=== PATIENT | male | born 1995 | race African-American/Black ===

== ENCOUNTER 2022-02-07 12:43 | Emergency (ER) | payer OTHER, SELFPAY ==
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
[2022-02-07 12:59] VITALS: BP 158/94; PULSE 71; RESP 16; TEMP 36.7; O2SAT 100
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
[2022-02-07] MEDS: LIDOCAINE 5% PATCH 1 PATCH TRANSDERM (14:15)
[2022-02-07] MEDS: IBUPROFEN 600 MG TABLET PO (14:15)
== END 2022-02-07 14:50 | disposition home or self-care (01) ==
PROVIDERS: Emergency Provider Emergency Medicine
DX: S39.012A Strain of muscle, fascia and tendon of lower back, initial encounter (principal); V43.62XA Car passenger injured in collision with other type car in traffic accident, initial encounter
CPT/HCPCS: 72100; 99283; A9270

== ENCOUNTER 2022-04-18 21:03 | Emergency (ER) | payer OTHER, SELFPAY ==
[2022-04-18 21:12] VITALS: BP 151/82; PULSE 80; RESP 16; TEMP 37.2; O2SAT 100
[2022-04-18 21:38] LABS: Add Urine Microscopic? NO; Appearance Urine Clear (Clear); Bilirubin Urine Negative (Negative); Blood Urine Negative (Negative); Color Urine Yellow (Yellow); Glucose Urine UA Negative (Negative); Ketones Urine Negative (Negative); Leukocyte Esterase Ur Negative LEU/UL (Negative); Nitrate Urine Negative (Negative); Protein Urine Negative (Negative); Specific Grav Ur 1.015 (1.001-1.035); Urobilinogen Urine 0.2 mg/dL (<2.0); pH Urine 7.5 (5.0-9.0)
[2022-04-18 21:45] LABS: Mucus Urine Rare /lpf; RBC Urine 0-2 /hpf (0-2); WBC Urine 0-3 /hpf
--- NOTE | 2022-04-18 22:43 | ED.GENADULT ---
HPI - General Adult General Chief complaint: Urogenital-Male Stated complaint: Sti check Time Seen by Provider: 04/18/22 22:19 History of Present Illness HPI narrative: Mr. De La Cruz is a 26-year-old gentleman who presented emergency room with complaints of occasional dysuria. Patient states over the last week he has had dysuria off and on. Patient denies any fever or chills. Patient denies any flank pain. Patient denies any penile discharge. Patient states that he does have unprotected sex with 1 partner. Patient states that he is trying to be safe and he could have an STD. Patient denies ever having an STD in the past. Related Data Home Medications Medication Instructions Recorded Confirmed No Home Medications 02/07/22 02/07/22 Allergies Allergy/AdvReac Type Severity Reaction Status Date / Time No Known Allergies Allergy Verified 04/18/22 21:38 Review of Systems Review of Systems: A 12 point review of systems was completed patient all pertinent positive and negative per HPI the remainder are unremarkable. Exam Narrative: Constitutional: Patient is well-nourished in no acute distress. Patient is alert and oriented x3 HEENT: Moist mucous membranes. No scleral icterus. No lymphadenopathy. Neck: No carotid bruits noted no JVD noted Lungs: Lung sounds are clear to auscultation bilaterally. No accessory muscle use. No rhonchi, rales, or wheezes noted. Cardiovascular: Apical pulse is regular rate and rhythm. S1-S2 noted, no S3 or S4 noted. No gallops, murmurs, or rubs noted. Abdomen: Soft, round, and nontender. No palpable masses. Extremities: No edema. Nontender. Skin: No rashes or lesions. Warm and dry. Skin is intact. Neurological: No focal neurological deficits. Cranial nerves II-XII grossly intact. Psychiatric: Cooperative, appropriate mood, and affect Course Course Emergency Course: Discussed with patient that he will be treated for STDs at this time. Patient verbalized understanding. Also discussed with patient that he should be using protection when having sex with more than 1 partner. Patient verbalized understand this. Vital Signs Vital signs: Vital Signs Temperature 37.2 C 04/18/22 21:12 Pulse Rate 80 04/18/22 21:12 Respiratory Rate 16 04/18/22 21:12 Blood Pressure 151/82 H 04/18/22 21:12 Pulse Oximetry 100 04/18/22 21:12 Oxygen Delivery Room Air 04/18/22 21:12 Temperature 37.2 C 04/18/22 21:12 Pulse Rate 80 04/18/22 21:12 Respiratory Rate 16 04/18/22 21:12 Blood Pressure 151/82 H 04/18/22 21:12 Pulse Oximetry 100 04/18/22 21:12 Oxygen Delivery Room Air 04/18/22 21:12 Medical Decision Making Differential Diagnosis Differential Diagnosis: UTI, STD Vital Signs Vital Signs: Vital Signs Temperature 37.2 C 04/18/22 21:12 Pulse Rate 80 04/18/22 21:12 Respiratory Rate 16 04/18/22 21:12 Blood Pressure 151/82 H 04/18/22 21:12 Pulse Oximetry 100 04/18/22 21:12 Oxygen Delivery Room Air 04/18/22 21:12 Temperature 37.2 C 04/18/22 21:12 Pulse Rate 80 04/18/22 21:12 Respiratory Rate 16 04/18/22 21:12 Blood Pressure 151/82 H 04/18/22 21:12 Pulse Oximetry 100 04/18/22 21:12 Oxygen Delivery Room Air 04/18/22 21:12 Lab Data Labs: Lab Results 04/18/22 04/18/22 04/18/22 Range/Units 21:22 21:22 21:23 Urine Color (Yellow) Urine Appearance (Clear) Urine pH (5.0-9.0) Ur Specific [place] (1.001-1.035) Urine Protein (Negative) mg/dL Urine Glucose (UA) (Negative) mg/dL Urine Ketones (Negative) mg/dL Ur Blood (Man) (Negative) Urine Nitrate (Negative) Urine Bilirubin (Negative) Urine Urobilinogen (<2.0) mg/dL Leukocyte Esterase Rfl (Negative) GIGI/UL Urine RBC (0-2) /hpf Urine WBC /hpf Urine Mucus /lpf C.trachomatis RNA (TMA) Pending N.gonorrhoeae RNA (TMA) Pending Trichomonas Direct ID Cancelled
[2022-04-18] MEDS: metroNIDAZOLE 250 MG TABLET 2000 MG PO (23:03)
[2022-04-18] MEDS: AZITHROMYCIN 250 MG TABLET 2000 MG PO (23:05)
[2022-04-18] MEDS: cefTRIAXone 1 GM VIAL 0.5 GM IM (23:07)
[2022-04-18] MEDS: LIDOCAINE HCL 1% PF 30 ML VIAL INFILTRATE (23:07)
== END 2022-04-18 23:40 | disposition home or self-care (01) ==
PROVIDERS: Emergency Medicine; Emergency Provider Nurse Practitioner Adult Health
DX: R30.0 Dysuria (principal)
CPT/HCPCS: 81003; 87491; 87591; 87661; 96372; 99283; A9270; J0696

== ENCOUNTER 2022-04-20 23:35 | Emergency (ER) | payer OTHER, SELFPAY ==
[2022-04-20 23:38] VITALS: BP 164/104; PULSE 73; RESP 18; TEMP 36.8; O2SAT 100
[2022-04-20 23:59] LABS: Basophils Absolute Auto 0.1 K/mm3 (0.0-0.1); Eosinophils Absolute Auto 0.2 K/mm3 (0-0.3); Eosinophils Percent Auto 2.7 % (0-4.4); Hematocrit 44.1 % (42.0-52.0); Hemoglobin 14.5 g/dL (14.0-18.0); Immature Granulocyte Absolute 0.03 K/mm3 (0.00-0.031); Immature Granulocyte Percent A 0.4 % (0-0.5); Lymphocytes Absolute Auto 1.48 K/mm3 (0.9-3.2); Lymphocytes Percent Auto 20.3 % (18.3-44.2); Mean Corpuscular HGB Conc 32.9 g/dl (32-36); Mean Corpuscular Hemoglobin 28.6 pg (26-34); Mean Platelet Volume 8.7 fl (7.4-10.4); Monocytes Absolute Auto 0.6 K/mm3 (0.1-0.6); Monocytes Percent Auto 8.4 % (2.6-8.5); Neutrophils Absolute Auto 4.9 K/mm3 (1.3-6.7); Neutrophils Percent Auto 67.2 % (45.5-73.1); Platelet Count Result 293 k/mm3 (150-375); Red Blood Count 5.07 M/mm3 (4.6-6.20); Red Cell Distribution Width 12.9 % (11.5-14.5); White Blood Count 7.3 K/mm3 (4.5-10.0)
[2022-04-21 00:10] LABS: Alanine Aminotransferase 19 U/L (6-50); Albumin Level 5.3 g/dL (3.5-5.1); Alkaline Phosphatase 61 U/L (38-126); Anion Gap 9 mmol/L (8-16); Aspartate Amino Transferase 34 U/L (17-59); Bilirubin,Total 0.4 mg/dL (0.2-1.3); Blood Urea Nitrogen 11 mg/dL (9-20); Calcium 9.9 mg/dL (8.4-10.2); Carbon Dioxide 25 mmol/L (22-30); Chloride 101 mmol/L (98-107); Estimated CRCL calculation 85 ml/min; Estimated Glomerular Filt Rate > 60; Glucose 119 mg/dL (65-110); Lipase 105 U/L (23-300); Potassium 3.8 mmol/L (3.4-5.0); Sodium 135 mmol/L (137-145)
--- NOTE | 2022-04-21 00:15 | ED.ABDPAIN ---
HPI - Abdominal Pain General Chief Complaint: Abdominal Pain Stated Complaint: abdominal pain/diarrhea Time Seen by Provider: 04/20/22 23:41 Source: patient Mode of arrival: ambulatory Limitations: no limitations History of Present Illness HPI narrative: 26-year-old otherwise healthy here with complaints of abdominal cramping. Patient states that he was seen in the ER few days ago Flagyl. Patient states that he has taken 2 tablets so far and he has been cramping on and off. He presently denies any nausea, vomiting. He states that he had a formed stool this afternoon. No history of fever or chills. MD elicited complaint: abdominal pain Pertinent past history: none Onset (ago): day(s) (1) Pain Consistency: intermittent Location: RUQ Severity: mild Quality: cramping Radiation: none Migration to: no migration Exacerbating factors: nothing Relieving factors: nothing Related Data Home Medications Medication Instructions Recorded Confirmed No Home Medications 02/07/22 02/07/22 Allergies Allergy/AdvReac Type Severity Reaction Status Date / Time No Known Allergies Allergy Verified 04/18/22 21:38 Review of Systems Review of Systems: All systems reviewed & are unremarkable except as noted in HPI and below Constitutional: Constitutional: Reports no additional constitutional complaints Eyes: Eyes: Reports no additional eye complaints ENT: Reports system reviewed and no additional complaints, except as documented Cardiovascular: Cardiovascular: Reports no additional cardiovascular complaints Respiratory: Respiratory: Reports no additional respiratory complaints Gastrointestinal: Gastrointestinal: Reports as per HPI Musculoskeletal: Musculoskeletal: Reports no additional musculoskeletal complaints Neurologic: Reports system reviewed and no additional complaints, except as documented Exam Narrative: GENERAL: Well-appearing, well-nourished, and in no acute distress. HEAD: Normocephalic, atraumatic. EYES: PERRLA and EOMI. NECK: Supple. CHEST: Clear to auscultation. No respiratory distress. HEART: Regular rate and rhythm. No murmur heard. Normal peripheral pulses. ABDOMEN: Soft, nontender, nondistended, normal active bowel sounds. EXTREMITIES: Normal range of motion. No edema. SKIN: Warm, dry, no rash. NEURO: No focal deficits. Alert and oriented x3. PSYCH: Normal mood and affect. Course Course Emergency Course: Patient comfortably resting in bed in no discomfort informed him about his lab work. He states he feels good and comfortable going home. Advised him to start taking Flagyl. I reviewed his previous visit from the ER. Vital Signs Vital signs: Vital Signs Temperature 36.8 C 04/20/22 23:38 Pulse Rate 73 04/20/22 23:38 Respiratory Rate 18 04/20/22 23:38 Blood Pressure 164/104 H 04/20/22 23:38 Pulse Oximetry 100 04/20/22 23:38 Temperature 36.8 C 04/20/22 23:38 Pulse Rate 73 04/20/22 23:38 Respiratory Rate 18 04/20/22 23:38 Blood Pressure 164/104 H 04/20/22 23:38 Pulse Oximetry 100 04/20/22 23:38 MDM - Abdominal Pain Differential Diagnosis Differential diagnosis: Likely abdominal pain and gastroenteritis Medical Records Attestation: I reviewed the patient's medical records. Lab Data Attestation: I reviewed the patient's lab results. 04/20/22 23:54 04/20/22 23:54 Labs: Lab Results 04/20/22 04/20/22 Range/Units 23:54 23:54 WBC 7.3 (4.5-10.0) K/mm3 RBC 5.07 (4.6-6.20) M/mm3 Hgb 14.5 (14.0-18.0) g/dL Hct 44.1 (42.0-52.0) % MCV 87.0 (80-100) fl MCH 28.6 (26-34) pg MCHC 32.9 (32-36) g/dl RDW 12.9 (11.5-14.5) % Plt Count 293 (150-375) k/mm3 MPV 8.7 (7.4-10.4) fl Immature Gran % (Auto) 0.4 (0-0.5) % Neut % (Auto) 67.2 (45.5-73.1) % Lymph % (Auto) 20.3 (18.3-44.2) % [place] [place] % (Auto) 8.4 (2.6-8.5) % Eos % (Auto) 2.7 (0-4.4) % Baso % (Auto) 1.0 (0.2-1.2) % Lymp
[2022-04-21 00:33] VITALS: BP 156/95; PULSE 67; RESP 18; O2SAT 100
== END 2022-04-21 00:35 | disposition home or self-care (01) ==
PROVIDERS: Emergency Provider Family Medicine
DX: R10.84 Generalized abdominal pain (principal)
CPT/HCPCS: 36415; 80053; 83690; 85025; 99283

== ENCOUNTER 2022-07-21 16:24 | Emergency (ER) | payer OTHER, SELFPAY ==
[2022-07-21 16:24] VITALS: BP 167/90; PULSE 90; RESP 15; TEMP 37.2; O2SAT 100
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
[2022-07-21 18:25] LABS: Appearance Urine Cloudy (Clear); Bacteria Urine None Seen /hpf; Bilirubin Urine Negative (Negative); Blood Urine Negative (Negative); Color Urine Yellow (Yellow); Glucose Urine UA Negative (Negative); Ketones Urine Trace mg/dL (Negative); Leukocyte Esterase Ur Negative LEU/UL (Negative); Nitrate Urine Negative (Negative); Non Pathogenic Casts 0-2; Protein Urine Negative (Negative); RBC Urine 0-2 /hpf (0-2); Specific Grav Ur 1.023 (1.001-1.035); Squamous Epithelial Cell Urine None seen /hpf (Few); Urobilinogen Urine 0.2 mg/dL (<2.0); WBC Urine 0-5 /hpf
[2022-07-21 18:36] LABS: Add Urine Microscopic? YES
[2022-07-21] MEDS: cefTRIAXone 1 GM VIAL 0.5 GM IM (18:43)
[2022-07-21] MEDS: LIDOCAINE HCL 1% LOCAL INJ 10 ML VIAL (18:44)
[2022-07-21] MEDS: metroNIDAZOLE 250 MG TABLET 2000 MG PO (18:44)
[2022-07-21] MEDS: ONDANSETRON HCL ODT 4 MG TABLET PO (18:44)
== END 2022-07-21 18:52 | disposition home or self-care (01) ==
PROVIDERS: Emergency Medicine; Emergency Provider Physician Assistant
DX: Z20.2 Contact with and (suspected) exposure to infections with a predominantly sexual mode of transmission (principal)
CPT/HCPCS: 81001; 87491; 87591; 96372; 99283; A9270; J0696

== ENCOUNTER 2022-09-04 08:21 | Emergency (ER) | payer OTHER, SELFPAY ==
--- NOTE | ~2022-09-04 | US_ITS ---
EXAMINATION: US scrotum doppler DATE: 09/04/2022 10:00 INDICATION: Testicular pain. Recent treatment for STD. TECHNIQUE: Testicular sonogram utilizing grayscale and Doppler COMPARISON: None. FINDINGS: The right testis measures 3.3 x 2.9 x 1.7 cm. The left testis measures 3.8 x 2.6 x 1.5 cm. Symmetric normal grayscale appearance to both testes. There is normal vascular flow to both testes. The right e pididymis is normal with normal vascular flow. The left epididymis is normal with normal vascular antelmo w. There is no varicocele or hydrocele. IMPRESSION: 1. Normal scrotal ultrasound. Reviewed, dictated and finalized at location A.
[2022-09-04 08:27] VITALS: BP 154/105; PULSE 85; RESP 20; TEMP 36.3; O2SAT 97
[2022-09-04 09:00] VITALS: BP 160/110; PULSE 71; RESP 18; O2SAT 99
--- NOTE | 2022-09-04 09:32 | ED.MALEGU ---
HPI - Male Genitourinary General Chief complaint: Urogenital-Male Stated complaint: STD symptoms Time Seen by Provider: 09/04/22 09:20 History of Present Illness HPI Narrative: 26-year-old male with a history of chlamydia reports for evaluation of testicular pain and stinging to the end of his penis x3 to 4 days. Patient reports the testicular pain is a dull ache and the stinging is intermittent. Patient was seen on 07/21 for STD testing and empiric treatment with the same symptoms. He tested negative for chlamydia and gonorrhea. He was empirically treated with IM Rocephin, Flagyl and 7 days of twice daily Doxy. States he took the prescriptions as prescribed. Patient states his symptoms improved and then came back again 3 to 4 days later. He denies having sexual intercourse since his previous ED visit. Denies anal intercourse, abdominal pain, fever, body aches, chills, back pain, penile or scrotal rashes, testicular swelling. Related Data Allergies Allergy/AdvReac Type Severity Reaction Status Date / Time No Known Allergies Allergy Verified 09/04/22 09:13 Review of Systems Review of Systems: CONSTITUTIONAL: Denies fever, chills EYES: Denies visual changes, redness, or discharge. ENT: Denies rhinorrhea, congestion, sore throat, or otalgia. CARDIOVASCULAR: Denies chest pain, palpitations, or edema. RESPIRATORY: Denies cough or dyspnea. GASTROINTESTINAL: Denies abdominal pain, nausea, vomiting, or diarrhea. GENITOURINARY: See HPI SKIN: Denies rash or itching. MUSCULOSKELETAL: Denies back pain, joint pain, or myalgia. NEUROLOGIC: Denies headache, numbness, dizziness, or weakness. PSYCHIATRIC: Denies anxiety or depression. Exam Narrative: GENERAL: Well-appearing, in no acute distress. HEAD: Normocephalic NECK: Supple. CHEST: No respiratory distress. Clear to auscultation, no adventitious breath sounds. HEART: Regular rate and rhythm. No murmur heard. Normal peripheral pulses. ABDOMEN: Soft, nontender, normal active bowel sounds. No CVA tenderness : No rashes to penis or scrotum. Testicles are low-lying. No tenderness to testicles or epididymis on palpation. No scrotal masses palpated. No edema. No discharge noted to urethra. EXTREMITIES: Normal range of motion. No edema. SKIN: Warm, dry, no rash. NEURO: No focal deficits. Alert and oriented x3. PSYCH: Normal mood and affect. Course Vital Signs Vital signs: Vital Signs Temperature 97.3 F L 09/04/22 08:27 Pulse Rate 85 09/04/22 08:27 Respiratory Rate 20 09/04/22 08:27 Blood Pressure 154/105 H 09/04/22 08:27 Pulse Oximetry 97 09/04/22 08:27 Oxygen Delivery Room Air 09/04/22 08:27 Temperature 97.8 F 09/04/22 10:50 Pulse Rate 67 09/04/22 10:50 Respiratory Rate 20 09/04/22 10:50 Blood Pressure 170/101 H 09/04/22 10:50 Pulse Oximetry 100 09/04/22 10:50 Oxygen Delivery Room Air 09/04/22 08:27 MDM - Male Genitourinary MDM Narrative Medical decision making narrative: 26-year-old male reports for evaluation of bilateral testicular pain and stinging to the head of his penis x3 to 4 days. Patient was treated on 07/21 empirically for STDs. Chlamydia and gonorrhea testing at that time was negative. He had a improvement in symptoms after treatment, however they returned 3 to 4 days ago. Exam reveals low-lying testicles without tenderness to palpation. Urinalysis normal. Ultrasound reveals good vascular flow to both testes and epididymis. Patient treated with IM Rocephin, Flagyl and 7 days of Doxy today. Referrals for urology and primary care provided. Encourage close follow-up. Strict ED return precautions discussed. Patient agrees with plan and verbalizes understanding. Vital stable. Discharged in stable condition. Medical Records Attestation: I reviewed the patient's medical records. Lab Data Attestation: I reviewed the patient's lab results. Labs: Lab Results 09/04/22 09/04/22 Range/Units 09:36
[2022-09-04 09:43] LABS: Appearance Urine Clear (Clear); Bilirubin Urine Negative (Negative); Blood Urine Negative (Negative); Color Urine Yellow (Yellow); Glucose Urine UA Negative (Negative); Ketones Urine Negative (Negative); Leukocyte Esterase Ur Negative LEU/UL (Negative); Nitrate Urine Negative (Negative); Protein Urine Negative (Negative); Specific Grav Ur 1.021 (1.001-1.035); Urobilinogen Urine 0.2 mg/dL (<2.0); pH Urine 7.5 (5.0-9.0)
[2022-09-04 09:44] LABS: Add Urine Microscopic? NO
[2022-09-04] MEDS: metroNIDAZOLE 250 MG TABLET 2000 MG PO (10:43)
[2022-09-04] MEDS: cefTRIAXone 1 GM VIAL 0.5 GM IM (10:45)
[2022-09-04] MEDS: DOXYCYCLINE HYCLATE 100 MG TABLET PO (10:45)
[2022-09-04 10:50] VITALS: BP 170/101; PULSE 67; RESP 20; TEMP 36.6; O2SAT 100
[2022-09-04] MEDS: LIDOCAINE HCL 1% LOCAL INJ 10 ML VIAL (11:06)
[2022-09-04 11:19] VITALS: BP 148/101; PULSE 68; RESP 20; O2SAT 100
== END 2022-09-04 11:18 | disposition home or self-care (01) ==
LOC: ANHED 10:19
PROVIDERS: Emergency Provider Physician Assistant
DX: N50.811 Right testicular pain (principal)
CPT/HCPCS: 76870; 81003; 87491; 87591; 87661; 87808; 93976; 96372; 99284; A9270; J0696

== ENCOUNTER 2022-09-24 21:53 | Emergency (ER) | payer OTHER, SELFPAY ==
[2022-09-24 21:56] VITALS: BP 169/102; PULSE 103; RESP 16; TEMP 37.1; O2SAT 100
[2022-09-24 22:03] VITALS: BP 184/102; PULSE 110; RESP 15; TEMP 36.7; O2SAT 98
[2022-09-24 23:21] LABS: Appearance Urine Clear (Clear); Bacteria Urine None Seen /hpf; Bilirubin Urine Negative (Negative); Blood Urine Negative (Negative); Color Urine Yellow (Yellow); Glucose Urine UA Negative (Negative); Ketones Urine Negative (Negative); Leukocyte Esterase Ur Negative LEU/UL (Negative); Nitrate Urine Negative (Negative); Non Pathogenic Casts 0-2; Protein Urine 1+ mg/dL (Negative); RBC Urine 0-2 /hpf (0-2); Specific Grav Ur 1.025 (1.001-1.035); Squamous Epithelial Cell Urine None seen /hpf (Few); Urobilinogen Urine 0.2 mg/dL (<2.0); WBC Urine 0-5 /hpf
[2022-09-24 23:28] LABS: Add Urine Microscopic? YES
--- NOTE | 2022-09-24 23:50 | ED.GENADULT ---
HPI - General Adult General Chief complaint: Urogenital-Male Stated complaint: penile pain Time Seen by Provider: 09/24/22 22:08 History of Present Illness HPI narrative: Patient is a 26-year-old gentleman who presents the emergency department with chief complaint of penile discomfort. The patient reports that he has been seen in the emergency department for STIs and supposed to follow-up with urology. The patient reports that he has noticed that he has some irritation on his penis reports no vesicles or blisters but does report that he has some irritation of the skin. Patient reports no penile discharge no dysuria Related Data Allergies Allergy/AdvReac Type Severity Reaction Status Date / Time No Known Allergies Allergy Verified 09/04/22 09:13 Review of Systems Review of Systems: A 10 system review of systems was completed on the patient and is negative except for what is stated in the HPI. Nursing and ancillary documentation was reviewed. Exam Narrative: GENERAL: Well-appearing, well-nourished, and in no acute distress. HEAD: Normocephalic, atraumatic. EYES: PERRLA and EOMI. ENT: Nares clear, no rhinorrhea or epistaxis. Mucous membranes moist. NECK: Supple. CHEST: Clear to auscultation. No respiratory distress. HEART: Regular rate and rhythm. No murmur heard. Normal peripheral pulses. ABDOMEN: Soft, nontender, nondistended, normal active bowel sounds. : No penile discharge noticed no tenderness, multiple small blotchy's patches on the penis. EXTREMITIES: Normal range of motion. No edema. SKIN: Warm, dry, no rash. NEURO: No focal deficits. Alert and oriented x3. PSYCH: Normal mood and affect. Course Vital Signs Vital signs: Vital Signs Temperature 37.1 C 09/24/22 21:56 Pulse Rate 103 H 09/24/22 21:56 Respiratory Rate 16 09/24/22 21:56 Blood Pressure 169/102 H 09/24/22 21:56 Pulse Oximetry 100 09/24/22 21:56 Oxygen Delivery Room Air 09/24/22 21:56 Temperature 36.7 C 09/24/22 22:03 Pulse Rate 110 H 09/24/22 22:03 Respiratory Rate 15 09/24/22 22:03 Blood Pressure 184/102 H 09/24/22 22:03 Pulse Oximetry 98 09/24/22 22:03 Oxygen Delivery Room Air 09/24/22 21:56 Medical Decision Making MDM Narrative Medical decision making narrative: Differential diagnosis includes balanitis, UTI, STI, syphilis An RPR was sent on the patient today a urinalysis and GC chlamydia was sent as well. Urinalysis showed no evidence of UTI The patient was started on a clotrimazole cream and should follow-up with primary care or urology Vital Signs Vital Signs: Vital Signs Temperature 37.1 C 09/24/22 21:56 Pulse Rate 103 H 09/24/22 21:56 Respiratory Rate 16 09/24/22 21:56 Blood Pressure 169/102 H 09/24/22 21:56 Pulse Oximetry 100 09/24/22 21:56 Oxygen Delivery Room Air 09/24/22 21:56 Temperature 36.7 C 09/24/22 22:03 Pulse Rate 110 H 09/24/22 22:03 Respiratory Rate 15 09/24/22 22:03 Blood Pressure 184/102 H 09/24/22 22:03 Pulse Oximetry 98 09/24/22 22:03 Oxygen Delivery Room Air 09/24/22 21:56 Lab Data Labs: Lab Results 09/24/22 Range/Units 23:05 Urine Color Yellow (Yellow) Urine Appearance Clear (Clear) Urine pH 7.0 (5.0-9.0) Ur Specific [place] 1.025 (1.001-1.035) Urine Protein 1+ H (Negative) mg/dL Urine Glucose (UA) Negative (Negative) mg/dL Urine Ketones Negative (Negative) mg/dL Ur Blood (Man) Negative (Negative) Urine Nitrate Negative (Negative) Urine Bilirubin Negative (Negative) Urine Urobilinogen 0.2 (<2.0) mg/dL Leukocyte Esterase Rfl Negative (Negative) GIGI/UL Urine RBC 0-2 (0-2) /hpf Urine WBC 0-5 /hpf Ur Squamous Epith Cells None seen (Few) /hpf Urine Bacteria None seen /hpf Urine Casts 0-2 RPR Pending C.trachomatis RNA (TMA) Pending N.gonorrhoeae RNA (TMA) Pending Urine Characteristics Clear
[2022-09-25 00:22] VITALS: BP 177/115; PULSE 97; RESP 15; TEMP 36.6; O2SAT 97
[2022-09-25 06:43] LABS: Rapid Plasma Reagin Non-Reactive (NonReactive)
== END 2022-09-25 00:23 | disposition home or self-care (01) ==
PROVIDERS: Emergency Provider Emergency Medicine
DX: N48.1 Balanitis (principal)
CPT/HCPCS: 36415; 81001; 86592; 87491; 87591; 99283

== ENCOUNTER 2022-11-04 12:44 | Emergency (ER) | payer OTHER, SELFPAY ==
[2022-11-04] VITALS (9 sets, daily range): BP systolic 136–167; BP diastolic 86–94; PULSE 72–100; RESP 14–19; TEMP 36.6; O2SAT 100
--- NOTE | ~2022-11-04 | XR_ITS ---
EXAMINATION: XR chest 2V 11/04/2022 13:43 INDICATION: Chest pain PROCEDURE: 2 view chest COMPARISON: No prior studies for comparison. FINDINGS: The lungs are clear. The cardiomediastinal silhouette is within normal limits. There are no pleural effusions. There is no pneumothorax suspected. IMPRESSION: 1: NO ACUTE CARDIOPULMONARY DISEASE. Reviewed, dictated and finalized at location A.
--- NOTE | 2022-11-04 12:45 | ECG_ITS ---
Measurements Intervals [place] Rate: 94 P: 70 RI: 141 QRS: 53 QRSD: 97 T: 38 QT: 298 QTc: 373 Interpretive Statements SINUS RHYTHM NORMAL ECG NO PREVIOUS ECG AVAILABLE FOR COMPARISON Electronically Signed On 11-04-2022 16:22:41 CDT by Trevor Grady D.O.
[2022-11-04] MEDS: ASPIRIN 81 MG CHEWABLE TABLET 324 MG PO (12:58)
--- NOTE | 2022-11-04 13:03 | ED.GENADULT ---
HPI - General Adult General Chief complaint: Chest Pain Stated complaint: chest pain Time Seen by Provider: 11/04/22 12:49 History of Present Illness HPI narrative: 26 year old male history of asthma presented with chest pain. Per patient, for the past three days of left sided non radiating chest pain. Denied diaphoresis, nausea/vomiting, shortness of breath, injury, abdominal pain, cough, fevers/chills, cough, sick contacts. Reports this morning having the pain, significantly improved by time of ED presentation. Past Medical History: asthma Past Surgical History: denied Medications: denied Allergies: denied Social: No smoking or recreational drugs Family History: no early MD, no history of sudden cardiac Related Data Allergies Allergy/AdvReac Type Severity Reaction Status Date / Time No Known Allergies Allergy Verified 11/04/22 12:44 Exam Narrative: General: Alert, calm and cooperative, no acute distress, phonating, sitting comfortably during visit HEENT: Pupils equal round and reactive to light, extra ocular movements intact, no conjunctival injection, head atraumatic, neck supple without meningismus Cardiovascular: Regular rate and rhythm, no visible jugular venous distension Respiratory: Lungs clear to auscultation bilaterally, no wheezing/rales/rhonchi Abdominal: soft, non-tender, non-distended, no guarding, no rebound/peritoneal signs, no costovertebral tenderness to palpation Back: no midline tenderness to palpation, no step offs Extremities: No edema, palpable peripheral pulses, warm, well perfused, no tenderness to bilateral calves Neurological: Alert, moving all extremities symmetrically, ambulating without deficit Course Vital Signs Vital signs: Vital Signs Temperature 98 F 11/04/22 12:47 Pulse Rate 100 11/04/22 12:47 Respiratory Rate 17 11/04/22 12:47 Blood Pressure 167/94 H 11/04/22 12:47 Pulse Oximetry 100 11/04/22 12:47 Oxygen Delivery Room Air 11/04/22 12:47 Temperature 98 F 11/04/22 12:47 Pulse Rate 75 11/04/22 13:48 Respiratory Rate 18 11/04/22 13:48 Blood Pressure 167/94 H 11/04/22 12:47 Pulse Oximetry 100 11/04/22 13:48 Oxygen Delivery Room Air 11/04/22 12:47 Procedures Other Procedure Procedure 1: Other Procedure: Emergency [id number] ultrasound of the heart performed and interpreted by me for this patient with chest pain. The heart was visualized using phased-array probe in parasternal long, parasternal short, apical 4 chamber, subxiphoid views. Images revealed preserved left ventricular EF, no right heart strain, no pericardial effusion, IVC collapsible. No gross evidence of B-lines in bilateral lungs. Medical Decision Making MDM Narrative Medical decision making narrative: 26 year old male history of asthma presented with several days of left sided, non radiating chest pain. Physical exam benign, sitting in bed comfortably, POCUS with LV EF preserved, no right heart strain, no pericardial effusion, vitals stable. Differential diagnosis includes but not limited to: ACS vs PE vs Pneumonia vs pneumothorax. Heart Score 0 (History 0, ECG 0, Age 0, Risk factors 0, troponin 0). D dimer within normal limits. CXR clear. Blood work reviewed, noted to be unremarkable. Physical exam benign, sitting comfortably, vitals stable. The patient tolerated oral intake, is alert and oriented, speaking with clear speech, ambulated with steady gait, and has remained hemodynamically stable throughout the ED visit. Findings on imaging communicated to patient and counseled to follow up with primary care provider. Has close follow up with primary care. Areas of diagnostic uncertainty discussed and strict return precautions shared with patient; encouraged to return to the emergency department if symptoms returned or worsened. The patient is safe to be discharged with follow up, provided he abide by the verbalized and written instructions, to which the patient has ex
[2022-11-04 13:13] LABS: Basophils Absolute Auto 0.1 K/mm3 (0.0-0.1); Basophils Percent Auto 1.2 % (0.2-1.2); Eosinophils Absolute Auto 0.3 K/mm3 (0-0.3); Eosinophils Percent Auto 4.8 % (0-4.4); Hematocrit 47.7 % (42.0-52.0); Hemoglobin 15.6 g/dL (14.0-18.0); Immature Granulocyte Absolute 0.07 K/mm3 (0.00-0.031); Lymphocytes Absolute Auto 1.38 K/mm3 (0.9-3.2); Mean Corpuscular HGB Conc 32.7 g/dl (32-36); Mean Corpuscular Hemoglobin 28.5 pg (26-34); Mean Corpuscular Volume 87.2 fl (80-100); Mean Platelet Volume 8.4 fl (7.4-10.4); Monocytes Absolute Auto 0.5 K/mm3 (0.1-0.6); Monocytes Percent Auto 7.4 % (2.6-8.5); Neutrophils Absolute Auto 4.5 K/mm3 (1.3-6.7); Neutrophils Percent Auto 65.6 % (45.5-73.1); Platelet Count Result 278 k/mm3 (150-375); Red Blood Count 5.47 M/mm3 (4.6-6.20); Red Cell Distribution Width 12.4 % (11.5-14.5); White Blood Count 6.9 K/mm3 (4.5-10.0)
[2022-11-04 13:24] LABS: Alanine Aminotransferase 39 U/L (6-50); Albumin Level 5.4 g/dL (3.5-5.1); Alkaline Phosphatase 49 U/L (38-126); Anion Gap 15 mmol/L (8-16); Aspartate Amino Transferase 45 U/L (17-59); Bilirubin,Total 0.6 mg/dL (0.2-1.3); Blood Urea Nitrogen 12 mg/dL (9-20); Calcium 10.6 mg/dL (8.4-10.2); Carbon Dioxide 28 mmol/L (22-30); Chloride 97 mmol/L (98-107); Estimated CRCL calculation 83 ml/min; Estimated Glomerular Filt Rate > 60; Glucose 79 mg/dL (65-110); Lipase 114 U/L (23-300); Potassium 4.6 mmol/L (3.4-5.0); Sodium 140 mmol/L (137-145)
[2022-11-04 13:26] LABS: INR 0.9; Prothrombin Time 12.6 Seconds (11.1-14.7)
[2022-11-04 13:27] LABS: Partial Thromboplastin Time 25.8 SECONDS (22.3-36.8)
[2022-11-04 13:35] LABS: Troponin I < 0.012 ng/mL (0.000-0.034)
[2022-11-04 14:21] LABS: D Dimer 0.31 ug/mL (<0.48)
== END 2022-11-04 14:44 | disposition home or self-care (01) ==
PROVIDERS: Emergency Medicine; Emergency Provider Emergency Medicine
DX: R07.9 Chest pain, unspecified (principal); J45.909 Unspecified asthma, uncomplicated
CPT/HCPCS: 36415; 71046; 80053; 83690; 84484; 85025; 85380; 85610; 85730; 93005; 99284; A9270

== ENCOUNTER 2023-06-08 18:44 | Emergency (ER) | payer BC, SELFPAY ==
--- NOTE | ~2023-06-08 | US_ITS ---
EXAMINATION: US scrotum doppler DATE: 06/08/2023 19:43 INDICATION: left testicle pain . TECHNIQUE: Grayscale and Doppler ultrasound images of the testes were obtained. COMPARISON: 09/04/2022. FINDINGS: The right testis measures 4.0 x 1.6 x 2.4 cm. The left testis measures 3.7 x 1.7 x 2.1 cm. No testicular mass. There is normal vascular flow to both testes. The right epididymis is normal with normal vascular flow. The left epididymis is normal with normal vascular flow. There is no varicocel e or hydrocele. IMPRESSION: Normal scrotal ultrasound findings. Reviewed, dictated and finalized at location K. [facility]
[2023-06-08 18:53] VITALS: BP 162/101; PULSE 102; RESP 20; TEMP 36.6; O2SAT 100
--- NOTE | 2023-06-08 22:00 | ED.GENADULT ---
HPI - General Adult General Chief complaint: Urogenital-Male Stated complaint: testicular pain Time Seen by Provider: 06/08/23 21:37 History of Present Illness HPI narrative: This is a 27-year-old male presenting with testicle pain. The going on off for the last week. Patient has had this multiple times in the past and typically is due to STI. he states it is not an ST at this time because he was checked for STDs 4 months ago has not been sexually active since then. Patient is currently not any pain. He has not seen urologist he was seen 1 month ago at an outside hospital for perineal pain was treated with 10 days of unknown abx. patient required testicular surgery as a child for a undescended testicle. Related Data Allergies Allergy/AdvReac Type Severity Reaction Status Date / Time No Known Allergies Allergy Verified 06/08/23 18:44 Exam Narrative: APPEARANCE: No apparent distress. Head: atraumatic. EYES: EOMI, NOSE: Atraumatic NECK: Trachea midline RESPIRATORY: No increased rate of breathing CARDIOVASCULAR: RRR, ABDOMINAL: Non-distended MUSCULOSKELETAl: No obvious deformities, abdomen soft nontender no guarding rebound testicle exam showed no external abnormalities, no tenderness the left testicle, slightly smaller than the right testicle, normal lie NEURO: Alert. Moving 4/4 extremities SKIN:: Warm, dry. Normal color PSYCHIATRIC: Normal affect Course Vital Signs Vital signs: Vital Signs Temperature 97.9 F 06/08/23 18:53 Pulse Rate 102 H 06/08/23 18:53 Respiratory Rate 20 06/08/23 18:53 Blood Pressure 162/101 H 06/08/23 18:53 Pulse Oximetry 100 06/08/23 18:53 Oxygen Delivery Room Air 06/08/23 18:53 Temperature 97.9 F 06/08/23 18:53 Pulse Rate 102 H 06/08/23 18:53 Respiratory Rate 20 06/08/23 18:53 Blood Pressure 162/101 H 06/08/23 18:53 Pulse Oximetry 100 06/08/23 18:53 Oxygen Delivery Room Air 06/08/23 18:53 Medical Decision Making [facility] Narrative Medical decision making narrative: -Course: 27-year-old male presenting with testicle pain. Ultrasound normal. Urine not indicative infection. STD testing sent. The patient has had this problem chronically and has been treated antibiotics multiple times. Will hold off and let him follow-up with urology. Patient will be discharged with urology follow-up. -DDX includes but is not limited to: orchitis, epididymitis, STI, torsion -Co-morbidities complicating care: recurrent testicle pain, history of STIs -External Chart Review: review of multiple ER visits for testicle -Independent interpretation of studies: -Interventions: Motrin Tylenol -Shared decision making / Disposition:Discharged. -RX Motrin Tylenol Vital Signs Vital Signs: Vital Signs Temperature 97.9 F 06/08/23 18:53 Pulse Rate 102 H 06/08/23 18:53 Respiratory Rate 20 06/08/23 18:53 Blood Pressure 162/101 H 06/08/23 18:53 Pulse Oximetry 100 06/08/23 18:53 Oxygen Delivery Room Air 06/08/23 18:53 Temperature 97.9 F 06/08/23 18:53 Pulse Rate 102 H 06/08/23 18:53 Respiratory Rate 20 06/08/23 18:53 Blood Pressure 162/101 H 06/08/23 18:53 Pulse Oximetry 100 06/08/23 18:53 Oxygen Delivery Room Air 06/08/23 18:53 Lab Data Labs: Lab Results 06/08/23 06/08/23 06/08/23 Range/Units 22:04 22:04 22:04 Urine Color (Yellow) Urine Appearance (Clear) Urine pH (5.0-9.0) Ur Specific [place] (1.001-1.035) Urine Protein (Negative) mg/dL Urine Glucose (UA) (Negative) mg/dL Urine Ketones (Negative) mg/dL Ur Blood (Man) (Negative) Urine Nitrate (Negative) Urine Bilirubin (Negative) Urine Urobilinogen (<2.0) mg/dL Leukocyte Esterase Rfl (Negative) GIGI/UL C. trachomatis (PCR) Cancelled Pending N. gonorrhoeae (PCR) Cancelled Pending T. vaginalis (PCR) Cancelled 06/08/23 06/08/23 Range/Units 22:04 22:05 Urine Color
[2023-06-08 22:20] LABS: Appearance Urine Clear (Clear); Bilirubin Urine Negative (Negative); Blood Urine Negative (Negative); Color Urine Yellow (Yellow); Glucose Urine UA Negative (Negative); Ketones Urine Negative (Negative); Leukocyte Esterase Ur Negative LEU/UL (Negative); Nitrate Urine Negative (Negative); Protein Urine Negative (Negative); Specific Grav Ur 1.021 (1.001-1.035); Urobilinogen Urine 0.2 mg/dL (<2.0)
[2023-06-08] MEDS: IBUPROFEN 400 MG TABLET 800 MG PO (22:20)
[2023-06-08] MEDS: ACETAMINOPHEN 500 MG TABLET 1000 MG PO (22:21)
[2023-06-08 22:34] LABS: Add Urine Microscopic? NO
[2023-06-08 23:29] LABS: Trichomonas Vag PCR NOT DETECTED (NOT DETECTE)
[2023-06-08 23:44] VITALS: BP 146/82; PULSE 78; RESP 19; TEMP 36.8; O2SAT 99
[2023-06-08 23:53] LABS: Chlamydia trachomatis NOT DETECTED (NOT DETECTE); Neisseria gonorrhoeae PCR NOT DETECTED (NOT DETECTE)
== END 2023-06-08 23:45 | disposition home or self-care (01) ==
PROVIDERS: Emergency Provider Emergency Medicine
DX: N45.2 Orchitis (principal)
CPT/HCPCS: 76870; 81003; 87491; 87591; 87661; 93976; 99284; A9270